=== PATIENT | male | born 1955 | race Caucasian/White ===

== ENCOUNTER 2016-06-23 09:00 | Inpatient (IN) | payer OTHER ==
[~2016-06-23] VITALS: Ht 182.9 cm; Wt 109.5 kg
--- NOTE | ~2016-06-23 | DS ---
PATIENT'S NAME: EMERY AVILA [facility] AGE: 61 Y [address] ROOM: [address] [address] LOCATION: [facility] ADMIT DATE: 07/03/2016 Discharge Summary DISCHARGE DATE: 07/05/2016 FAMILY PHYSICIAN: Neeraj Hector MD ATTENDING PHYSICIAN: Leela Ferreira PRIMARY DIAGNOSIS: Degenerative joint disease of the right knee. SECONDARY DIAGNOSES: 1. Hypertension. 2. Obstructive sleep apnea with CPAP. 3. Hyperlipidemia. PROCEDURE PERFORMED: Right total knee arthroplasty with computer navigation. HISTORY: The patient is a 61-year-old male, who presents with advanced right knee degenerative joint disease and associated severely compromised activities of daily living. The patient has decided to proceed with total knee arthroplasty after having been thoroughly counseled regarding the risks, benefits, limitations and alternatives. Please refer to the outpatient clinic notes and admission history and physical for this patient. HOSPITAL COURSE: The patient underwent a right total knee arthroplasty on 07/03/2016 without complications. Spinal anesthesia plus adductor canal block plus periarticular local anesthesia was utilized. The patient received 24 hours of perioperative prophylactic antibiotics and remained hemodynamically stable, neurovascularly intact throughout the entire hospital course. The postoperative prophylactic deep venous thrombosis prophylaxis consisted of Xarelto 10 mg, early mobilization and pneumatic compression devices. Daily physical therapy for gait training, transfer training range of motion and quadriceps isometric exercises were received. The patient progressed well in physical therapy. On the date of discharge, 07/05/2016, the incision at the knee was healing well and showed no signs of infection. DISPOSITION: Home. DISCHARGE ACTIVITY: The patient is to bear weight as tolerated with range of motion and quadriceps isometric exercises as instructed. The operative extremity is to be elevated at least 90% of the day. There is to be sterile 4x4 gauze dressings to the incision daily. Dr. Ferreira is to be notified immediately if there is any increased pain, fevers, chills erythema or drainage. DISCHARGE MEDICATIONS: 1. Xarelto 10 mg, take 1 tab p.o. daily for DVT prevention. PATIENT'S NAME: EMERY AVILA [facility] AGE: 61 Y [address] ROOM: [address] [address] LOCATION: [facility] ADMIT DATE: 07/03/2016 Discharge Summary DISCHARGE DATE: 07/05/2016 FAMILY PHYSICIAN: Neeraj Hector MD ATTENDING PHYSICIAN: Leela Ferreira 2. Valium 5 mg, take 1/2 tablet to 1 tablet every 6 hours as needed for muscle spasms. 3. Dilaudid 4 mg, take 1 tablet p.o. every 3 hours as needed for pain. FOLLOWUP: Followup appointment is to be with Dr. Ferreira on July 10, 2016, for initial postoperative evaluation and x-rays at that time. VANDA ROCHA FOR LEELA FERREIRA MD TLB/modl /[id number] d: 07/12/16 0444 t: 07/14/16 1040, DISCHARGE SUMMARY
--- NOTE | ~2016-06-23 | OR ---
PATIENT'S NAME: FREDDIE HERRERA [facility] AGE: 61 Y [address] ROOM: [place] [id number] LOCATION: [facility] ADMIT DATE: 07/03/2016 OR/Procedure Report DISCHARGE DATE: FAMILY PHYSICIAN: Neeraj Hector MD ATTENDING PHYSICIAN: LEELA FERREIRA SURGEON: Leela Ferreira MD CHIEF MECHANICAL ENGINEER: Segun Portillo CST/MARKUS and Leela Gonzalez. DATE OF PROCEDURE: 07/03/2016 PRE-OP DIAGNOSIS: Degenerative joint disease, right Knee. POST-OP DIAGNOSIS: Degenerative joint disease, right knee. OPERATION: Right total knee arthroplasty with computer navigation. ANESTHESIA: Spinal anesthesia plus adductor canal block plus periarticular local anesthesia (ropivacaine with epinephrine and Toradol). ESTIMATED BLOOD LOSS: Less than 10 mL. DRAIN: None. SPECIMEN: None. COMPLICATIONS: None. IMPLANT SYSTEM: Manuel Triathlon. 1. Size 6 right posterior stabilized femoral component. 2. Size 5 universal modular tibial baseplate. 3. 11 mm, posterior stabilized, size 5 X3 tibial polyethylene insert. 4. 35 mm, oval X3 patella component. INDICATIONS FOR SURGERY: Freddie Herrera is a 61-year-old male who presents with advanced right knee degenerative joint disease and associated severely compromised activities of daily living. The patient has decided to proceed with knee replacement after having been thoroughly counseled regarding the associated risks, benefits, and limitations. We have specifically reviewed the risks and implications of infection, deep venous thrombosis, pulmonary embolism, mortality, neurovascular complications, blood transfusion (and associated potential for disease transmission or transfusion reaction), stiffness, instability, mechanical deterioration of the components (due to wear and or loosening), and the potential need for revision. We have also emphasized the importance of active involvement and compliance with post- operative physical therapy as a means of optimizing range of motion and PATIENT'S NAME: FREDDIE HERRERA [facility] AGE: 61 Y [address] ROOM: [address] [address] LOCATION: [facility] ADMIT DATE: 07/03/2016 OR/Procedure Report DISCHARGE DATE: FAMILY PHYSICIAN: Neeraj Hector MD ATTENDING PHYSICIAN: LEELA FERREIRA functional recovery. Informed consent has been granted. DESCRIPTION OF PROCEDURE: The patient was positioned supine after administration of anesthesia and prophylactic antibiotics. A well-padded pneumatic tourniquet was placed around the right proximal thigh, and the right lower extremity was prepped and draped with vigilant sterile technique. The patient's name as well as the intended operative side and procedure were confirmed with a verbal time-out involving myself, the circulating nurse, the scrub nurse, and the anesthesiologist. Examination under anesthesia demonstrated no active skin lesions or masses. There was a moderate effusion. There was no erythema. There was no abnormal warmth. Range of motion under anesthesia was from full extension to 130 degrees of flexion. There was no ligamentous insufficiency. The right lower extremity was elevated and exsanguinated with an Esmarch wrap, and the pneumatic tourniquet was inflated to 300mmHg. The knee was approached through a longitudinal midline incision. A medial parapatellar arthrotomy was performed and the patella was everted. Examination of the joint space demonstrated generalized mildly proliferative synovitis. There was a large amount of benign-appearing translucent synovial fluid. There were no loose bodies. The cruciate ligaments were intact. There was full-thickness loss of articular cartilage involving a 2 x 3 cm region at the medial half of the medial femoral condyle and a 1.5 cm diameter region at the medial aspect of the medial tibial plateau. There was a moderate-sized osteophyte at the medial femoral condyle. There were small osteophytes at the medial and lateral tibial plateaus. There was a small osteophyte at the lateral femoral condyle. There were multifocal, moderate, grade 3 degenerative changes at the lateral tibial plateau. There was full-thickness fissuring at the lateral tibial plateau. There were moderate grade 3 degenerative changes extending across the equator of the patella. There were intermixed grade 3 and grade 4 degenerative changes involving 80% of the femoral trochlea. Remnants of the menisci and cruciate ligaments were excised. The Synappio computer navigation femoral tracker was pinned in place at the distal aspect of the femoral trochlea. Absence of motion between the femur and the tracking device was confirmed manually and visually. Femoral osseous landmarks were obtained in order to calibrate the computer navigation system. Landmarks included the center of rotation of the ipsilateral hip, the center-point of the distal femur, the femoral AP axis, 57 points on the medial femoral condyle articular surface, and 57 points on the lateral femoral condyle articular surface. The Synappio computer navigation system was subsequently utilized to position the distal femoral resection block such that the distal femoral resection was performed perfectly perpendicular to the femoral mechanical PATIENT'S NAME: FREDDIE HERRERA [facility] AGE: 61 Y [address] ROOM: [id number] [place], [place] [address] LOCATION: [facility] ADMIT DATE: 07/03/2016 OR/Procedure Report DISCHARGE DATE: FAMILY PHYSICIAN: Neeraj Hector MD ATTENDING PHYSICIAN: LEELA FERREIRA. The distal femoral resection was performed with a Modria oscillating saw. The Synappio computer navigation tibial tracker was pinned in place at the anterior aspect of the tibial plateau. Absence of motion between the tibia and the tracking device was confirmed manually and visually. Tibial osseous landmarks were obtained in order to calibrate the computer navigation system. Landmarks included the center-point of the tibial plateau, the AP tibial axis, 57 points on the medial tibial plateau articular surface, 57 points on the lateral tibial plateau articular surface, the medial malleolus, and the lateral malleolus. The Synappio computer navigation system was subsequently utilized to position the proximal tibial resection block such that the proximal tibial resection was performed perfectly perpendicular to the tibial mechanical axis. The proximal tibial resection was performed with a [employer] Precision oscillating saw. Perpendicularity of the tibial resection with respect to the tibial shaft axis was reconfirmed by inserting a spacer- block attached to an extramedullary guide glenda. External rotation of the anterior and posterior femoral resections was set parallel to the epicondylar axis and carefully adjusted in order to create a rectangular flexion gap. The box resection was performed with a reciprocating saw. Anterior and posterior chamfer resections were performed with the oscillating saw. Posterior condyle osteophytes were excised with an osteotome. All other osteophytes were excised with a rongeur. Resection of all remnants of the menisci was reconfirmed. Flexion and extension gaps were confirmed to be symmetric and well balanced with a spacer-block technique. The patella resection was performed with an oscillating saw such that the composite thickness of the reconstructed patella was equivalent to the thickness of the nenana patella. Patella tracking was confirmed to be optimal. Patella tracking was optimal, and there was no need for a lateral retinacular release. All trial components were removed and all prepared osseous surfaces were thoroughly irrigated with pulsatile saline lavage and dried prior to cementing all three components in a single stage using [employer] Simplex cement containing pre-mixed tobramycin. All extruded excess cement was removed. The entire joint space was thoroughly inspected and thoroughly irrigated with bacteriostatic pulsatile saline lavage to assure that there was no residual debris of any sort. Final range of motion was from full extension (with no passive hyperextension) to 130 degrees of flexion. Patella tracking was reconfirmed to be optimal. There was excellent anteroposterior stability at 90 degrees of flexion. There was less than 1 mm of medial lift-off to valgus stress in full extension. PATIENT'S NAME: FREDDIE HERRERA [facility] AGE: 61 Y [address] ROOM: [address] [address] LOCATION: [facility] ADMIT DATE: 07/03/2016 OR/Procedure Report DISCHARGE DATE: FAMILY PHYSICIAN: Neeraj Hector MD ATTENDING PHYSICIAN: LEELA FERREIRA There was less than 1 mm of lateral lift-off to varus stress in full extension. The arthrotomy was closed with multiple simple and hugspn-ch-sivae interrupted #1 Vicryl. Subcutaneous tissues were thoroughly re-irrigated with bacteriostatic pulsatile saline lavage. Subcutaneous tissues were re- approximated with simple buried interrupted #0 Vicryl sutures. The skin was closed with simple buried interrupted 2-0 Vicryl sutures followed by surgical phong. The dressing consisted of Xeroform gauze, 4x4 gauze, ABD pads, and two 6-inch Peng Wraps. There were no intra-operative complications. MD HEYDI PATEL/malia /[id number] d: 07/03/16950 t: 07/13/162219, OPERATIVE SUMMARY
[~2016-06-23 09:00] MED LIST: BACTRIM DS1 TAB PO; COLACE100 MG PO; CPAP INH; DILAUDID 4MG4 MG PO; FLOMAX0.4 MG PO; KEFLEX500 MG PO; MIRALAX17 GM PO; PEPCID20 MG PO; PRINIVIL OR ZES10 MG PO; REFRESH PLUS1 EACH IOC; RESTASIS 0.05%1 VIAL IOC; SILDENAFIL20 MG PO; TRAMADOL HCL E100 M2 PO; TRAMADOL HCL50 MG PO; TYLENOL EXTRA500 MG PO; VALIUM5 MG PO; XARELTO10 MG PO; [UNRECOGNIZED DRUG - OTHER] TOP
[2016-06-23] MEDS ORDERED: ASPIRIN EC81 MG PO (09:17)
[2016-06-23] MEDS ORDERED: [UNRECOGNIZED DRUG - OTHER] TOP (09:17)
[2016-06-23] MEDS ORDERED: FLONASE 50 MCG/16 GM NOSE (09:18)
[2016-06-23] MEDS ORDERED: PRILOSEC20 MG PO (09:18)
--- NOTE | 2016-07-03 14:48 | NUR ---
Met with patient and . Familiar to me from previous knee replacement. Reviewed use of IS. Verbalizes understanding. Reviewed foot pumps and encouraged waving feet. Has foot pumps on bilaterally. Will follow and assist as needs identified.
--- NOTE | 2016-07-03 17:29 | NUR ---
Significant Event: From PACU at 1030. Dressing C/D/I. Ez wrap ice at all times. Ambulates with one assist, walker and gaitbelt. Voids without difficulty. Room air during day, C-pap while sleeping. CSM WNL. Dilaudid 2mg last at 1554 Tylenol 1000mg and Valium 5mg last at 1724. Follow up:
--- NOTE | 2016-07-04 04:07 | NUR ---
Patient alert and oriented x3, very pleasant and cooperative, dressing clean dry and intact, csm with in normal limits, pain was increased around 2230 this evening but has been undercontrol since, ambulates well stand by assist with walker,
--- NOTE | 2016-07-04 09:55 | NUR ---
Introduced self/role to patient and his Katt, live in [place]. Plan is for home tomorrow. This is his second knee so he has all his DME from the first one. Denied any needs at discharge. Added my name to his marker board.
--- NOTE | 2016-07-04 16:18 | NUR ---
Significant Event: pt alert and oriented. up with 1 assist. jody well. pain issues this afternoon. dilaudid iv last at 1346. valium given at 1201. torodol ordered and given at 1523. diluadid po given at 1630. tylenol given at 1700. pt will go home tomorrow. michelle to knee. Follow up:
--- NOTE | 2016-07-05 02:18 | NUR ---
Shift Summary: Patient can ambulate with standby assist/walker. Good pain control with 4mg Dilaudid PO. Given Valium and one dose of IV dilaudid at bedtime. Tolerating regular diet well. Voiding without difficulty. Wears CPAP when sleeping. Plans to go home today.
[2016-07-05] MEDS ORDERED: TYLENOL EXTRA500 MG PO (09:35)
[2016-07-05] MEDS ORDERED: COLACE100 MG PO (09:38)
[2016-07-05] MEDS ORDERED: MIRALAX17 GM PO (09:42)
[2016-07-05] MEDS ORDERED: XARELTO10 MG PO (09:43)
[2016-07-05] MEDS ORDERED: VALIUM5 MG PO (09:45)
[2016-07-05] MEDS ORDERED: DILAUDID 4MG4 MG PO (09:46)
--- NOTE | 2016-07-05 11:46 | NUR ---
PT GIVEN DISCHARGE INSTRUCTIONS AND VOICES UNDERSTANDING.. MEDICATIONS AND DRESSING CHANGES REVIEWED WITH PT AND HIS . PT GIEN PAIN MEDS PRIOR TO DISCHARGE TO HOME. ESCORTED TO THE FRONT DOOR BY TRANSPORT STAFF. AT PT'S SIDE.
== END 2016-07-05 12:15 | disposition disaster alternative care site (69) | DRG 470 ==
LOC: G3N 07-03 05:26
PROVIDERS: ADMIT Orthopaedic Surgery
PROC: XR2G021 Monitoring of Right Knee Joint using Intraoperative Knee Replacement Sensor, Open Approach, New Technology Group 1 (ICD-10-PCS; principal; 2016-07-03)
PROC: 0SRC0J9 Replacement of Right Knee Joint with Synthetic Substitute, Cemented, Open Approach (ICD-10-PCS; principal; 2016-07-03)
DX: M17.11 Unilateral primary osteoarthritis, right knee (principal); I10 Essential (primary) hypertension; E66.9 Obesity, unspecified; Z68.32 Body mass index [BMI] 32.0-32.9, adult; E78.5 Hyperlipidemia, unspecified; G47.33 Obstructive sleep apnea (adult) (pediatric); N40.0 Benign prostatic hyperplasia without lower urinary tract symptoms; Z87.19 Personal history of other diseases of the digestive system; Z87.39 Personal history of other diseases of the musculoskeletal system and connective tissue
CPT/HCPCS: C1713; C1776; J0690; J1100; J1170; J1885; J2250; J2795; J7120